=== PATIENT | male | born 1955 ===

== ENCOUNTER 2017-10-29 21:25 | Emergency (ER) | payer OTHER ==
[2017-10-29 21:25] VITALS: BMI 28.3
[2017-10-29 21:58] VITALS: BP 112/62; PULSE 60; RESP 16; TEMP 98.6; O2SAT 98
--- NOTE | 2017-10-29 23:07 | ED PDOC ---
HPI: General Adult Time Seen by Provider: 10/29/17 23:05 Chief Complaint (Nursing): Flu-like Symptoms Chief Complaint (Provider): FEVER/MOUTH PAIN History Per: Patient (61 Y/O MALE H/O CAD HERE WITH MOUTH PAIN THAT BEGAN X 5 DAYS ASSOCIATED WITH FEVER. STATES HE HAD KISSED HIS GRANDDAUGHTER WHO HAD LESIONS ON MOUTH. NO COUGH/URI NOTED. NOTES MODERATE PAIN ON MOUTH.) Past Medical History Reviewed: Historical Data, Nursing Documentation, Vital Signs Vital Signs: Last Vital Signs Temp 98.6 F 10/29/17 21:55 Pulse 60 10/29/17 21:55 Resp 16 10/29/17 21:55 BP 112/62 10/29/17 21:55 Pulse Ox 98 10/29/17 21:55 - Medical History PMH: Diabetes, HTN Denies: Emphysema, Chronic Kidney Disease - Surgical History Surgical History: Coronary Stent - Family History Family History: States: No Known Family Hx - Immunization History Hx Tetanus Toxoid Vaccination: No Hx Influenza Vaccination: No Hx Pneumococcal Vaccination: No - Home Medications Home Medications: Ambulatory Orders Medication Instructions Recorded Tamsulosin [Flomax] 0.4 mg PO DAILY 09/14/16 Aspirin [Aspirin Chewable] 81 mg PO DAILY #0 chew 09/16/16 Lisinopril [Zestril] 5 mg PO DAILY #0 tab 09/16/16 Metoprolol Tartrate [Lopressor] 12.5 mg PO DAILY #0 tab 09/16/16 Apixaban [Eliquis] 2.5 mg PO BID #60 tablet 09/21/17 Rosuvastatin Calcium [Crestor] 20 mg PO HS #30 tab 09/21/17 Acetaminophen [Acetaminophen Extra 2 tab PO Q6 PRN #24 tablet 10/29/17 Strength] Mag&Al/Simet/Diphen/Lido [First 5 ml PO TID PRN #1 kit 10/29/17 Magic Mouthwash] - Allergies Allergies/Adverse Reactions: Allergies Allergy/AdvReac Type Severity Reaction Status Date / Time No Known Allergies Allergy Verified 09/13/17 17:16 Review of Systems ROS Statement: Except As Marked, All Systems Reviewed And Found Negative ENT: Positive for: Mouth Pain Physical Exam - Reviewed Nursing Documentation Reviewed: Yes Vital Signs Reviewed: Yes - Physical Exam Appears: Positive for: Well, Non-toxic, No Acute Distress Head Exam: Positive for: ATRAUMATIC, NORMAL INSPECTION, NORMOCEPHALIC Skin: Positive for: Normal Color, Warm, DRY Eye Exam: Positive for: EOMI, Normal appearance, PERRL ENT: Positive for: Normal ENT Inspection (HEALING LESIONS NOTED UPPER AND LOWER LIP) Neck: Positive for: Normal, Painless ROM Cardiovascular/Chest: Positive for: Regular Rate, Rhythm Respiratory: Positive for: CNT, Normal Breath Sounds Gastrointestinal/Abdominal: Positive for: Normal Exam, Bowel Sounds, Soft Back: Positive for: Normal Inspection Extremity: Positive for: Normal ROM Neurologic/Psych: Positive for: Alert, Oriented - ECG O2 Sat by Pulse Oximetry: 98 - Progress ED Course And Treament: ACETAMINOPHEN 975MG X 1 DOSE Disposition - Clinical Impression Clinical Impression: Herpangina - Patient ED Disposition Is Patient to be Admitted: No - Disposition Disposition: Routine/Home Disposition Time: 23:08 Condition: FAIR Prescriptions: Acetaminophen [Acetaminophen Extra Strength] 2 tab PO Q6 PRN #24 tablet PRN Reason: Pain, Moderate (4-7) Mag&Al/Simet/Diphen/Lido [First Magic Mouthwash] 5 ml PO TID PRN #1 kit PRN Reason: Pain, Moderate (4-7) Instructions: Hand, Foot, and Mouth Disease (ED) Print Language: ANGUILLAN
== END 2017-10-29 23:45 | disposition home or self-care (01) ==
LOC: H.ER 21:25
DX: B08.5 Enteroviral vesicular pharyngitis (principal)